=== PATIENT | male | born 1965 | race Caucasian/White ===

== ENCOUNTER 2017-02-28 13:15 | Emergency (ER) | payer MEDICAID ==
[~2017-02-28] VITALS: Ht 175.3 cm; Wt 113.4 kg
[2017-02-28 14:21] VITALS: BP 132/76
[2017-02-28] MEDS ORDERED: TETANUS-DIPTH-ACEL PERTUSSIS 0.5ML SYRG IM ONE (14:30)
[2017-02-28] MEDS ORDERED: cefTRIAXone SOD 1,000 MG VL IM ONE (14:30)
[2017-02-28] MEDS ORDERED: BACITRACIN TOP OINT 1 UD PKG TOP ONE (14:30)
== END 2017-02-28 14:49 | disposition home or self-care (01) ==
LOC: ER 13:21
DX: S61.532A Puncture wound without foreign body of left wrist, initial encounter (principal); I48.91 Unspecified atrial fibrillation; Z87.442 Personal history of urinary calculi; W54.0XXA Bitten by dog, initial encounter; Y93.89 Activity, other specified; Y99.8 Other external cause status; Y92.098 Other place in other non-institutional residence as the place of occurrence of the external cause
CPT/HCPCS: 90471; 90715; 96372; 99284; J0696

== ENCOUNTER 2022-05-22 08:15 | Emergency (ER) | payer MEDICAID ==
[~2022-05-22] VITALS: Ht 175.3 cm; Wt 109.1 kg
[2022-05-22 09:07] LABS: Basophils # (auto) 0 10 ^3/uL (0-0.2); Basophils % (auto) 0.4 % (0.0-2.0); Eosinophils # (auto) 0.1 10 ^3/uL (0-0.8); Eosinophils % (auto) 1.5 % (0.0-7.0); Hematocrit 42.8 % (41.0-53.0); Hemoglobin 14.3 g/dL (13.5-17.5); Lymphocytes # (auto) 0.7 10 ^3/uL (0.4-5.4); Lymphocytes % (auto) 9.9 % (10.0-50.0); Mean Corpuscular Hgb Conc. 33.3 g/dL (32.0-36.0); Monocytes # (auto) 0.8 10 ^3/uL (0-1.3); Neutrophils # (auto) 5.5 10 ^3/uL (1.6-8.6); Neutrophils % (auto) 77.2 % (37.0-80.0); Red Blood Cells 4.92 10^6/uL (4.5-5.90); Red Cell Distribution Width 13.4 % (11.8-14.3); White Blood Cell 7.1 10^3/uL (4.4-10.8)
[2022-05-22 09:20] LABS: Potassium 3.8 mmol/L (3.5-5.1)
[2022-05-22 09:27] LABS: Albumin 3.5 g/dL (3.4-5.0); BUN/Creatinine Ratio 16.8; Bilirubin, Total 0.6 mg/dL (0.2-1.0); Calcium 8.4 mg/dL (8.5-10.1); Total Protein 6.8 g/dL (6.4-8.2)
[2022-05-22] MEDS ORDERED: HYDROcodone-ACET 5/325MG TAB PO ONE (11:30)
[2022-05-22 11:49] VITALS: BP 106/79
== END 2022-05-22 11:49 | disposition home or self-care (01) ==
LOC: ER 08:15
DX: S29.012A Strain of muscle and tendon of back wall of thorax, initial encounter (principal); I48.91 Unspecified atrial fibrillation; X58.XXXA Exposure to other specified factors, initial encounter; Y93.89 Activity, other specified; Y92.89 Other specified places as the place of occurrence of the external cause; Y99.8 Other external cause status
CPT/HCPCS: 36415; 71045; 80053; 84484; 85025; 93005